=== PATIENT | female | born 1975 | race American Indian/Alaskan Native ===

== ENCOUNTER 2019-03-16 19:07 | Inpatient (IN) | payer BC ==
[2019-03-16] MEDS ORDERED: SODIUM CHLORIDE 0.9% 1000 ML 1,000 ML IV ONE (19:45)
--- NOTE | 2019-03-16 19:49 | Emergency Department Report ---
ED Shortness of Breath HPI - General Stated Complaint: DIFFICULTY BREATHING Time Seen by Provider: 03/16/19 19:25 Source: patient, EMS Mode of arrival: Stretcher Limitations: No Limitations - History of Present Illness Initial Comments: is a 43-year-old female that presents emergency room with complaints of shortness of breath and difficulty breathing. Patient states her symptoms started 2 days ago worsening. Patient states she has a lung condition. Patient is unable to speak in complete sentences. Patient denies chest pain. Patient denies dizziness. Patient denies syncope. Patient states her shortness of breath is worse with exertion and better with rest. Patient states she is on home O2. MD Complaint: shortness of breath -: Sudden Severity: severe Consistency: constant Improves With: oxygen, rest Worsens With: movement Known History Of: other - Related Data Home Medications Medication Instructions Recorded Confirmed Last Taken Carvedilol 25 mg PO BID 03/16/19 03/16/19 Unknown metFORMIN [Glucophage] 500 mg PO BID 03/16/19 03/16/19 Unknown Allergies Allergy/AdvReac Type Severity Reaction Status Date / Time No Known Allergies Allergy Unverified 03/16/19 20:40 ED Review of Systems ROS: Stated complaint: DIFFICULTY BREATHING Other details as noted in HPI Constitutional: denies: chills, fever Eyes: denies: eye pain, eye discharge, vision change ENT: denies: ear pain, throat pain Respiratory: cough, orthopnea, shortness of breath, SOB with exertion, SOB at rest. denies: wheezing Cardiovascular: dyspnea on exertion. 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, hypoxia - Surgical History Past Surgical History?: No - Family History Family history: no significant - Social History Smoking Status: Never Smoker Substance Use Type: None - Medications Home Medications: Home Medications Medication Instructions Recorded Confirmed Last Taken Type Carvedilol 25 mg PO BID 03/16/19 03/16/19 Unknown History metFORMIN [Glucophage] 500 mg PO BID 03/16/19 03/16/19 Unknown History ED Physical Exam - General Limitations: No Limitations General appearance: alert, in distress - Head Head exam: Present: atraumatic, normocephalic - Eye Eye exam: Present: normal appearance, PERRL Pupils: Present: normal accommodation - ENT ENT exam: Present: mucous membranes moist - Neck Neck exam: Present: normal inspection - Respiratory Respiratory exam: Present: normal lung sounds bilaterally, respiratory distress - Cardiovascular Cardiovascular Exam: Present: regular rate, normal rhythm. Absent: systolic murmur, diastolic murmur, rubs, gallop - GI/Abdominal GI/Abdominal exam: Present: soft, normal bowel sounds. Absent: distended, tenderness, guarding - Rectal Rectal exam: Present: deferred - Extremities Exam Extremities exam: Present: normal inspection, full ROM, normal capillary refill. Absent: tenderness, calf tenderness - Back Exam Back exam: Present: normal inspection - Neurological Exam Neurological exam: Present: alert, oriented X3 - Psychiatric Psychiatric exam: Present: normal affect, normal mood - Skin Skin exam: Present: warm, dry, intact, normal color. Absent: rash ED Course Vital Signs 03/16/19 03/16/19 03/16/19 15:32 16:03 16:50 Temperature Pulse Rate Respiratory Rate Blood Pressure 135/90 110/80 110/80 O2 Sat by Pulse 98 Oximetry 03/16/19 03/16/19 03/16/19 16:56 17:00 19:35 Temperature Pulse Rate Respiratory Rate Blood Pressure 110/80 110/80 191/130 O2 Sat by Pulse 96 97 82 L Oximetry 03/16/19 03/16/19 03/16/19 19:40 19:45 20:00 Temperature 98.1 F Pulse Rate 82 78 Respiratory 40 H 21 Rate Blood Pressure 191/130 191/130 O2 Sat by Pulse 100 99 Oximetry 03/16/19 03/16/19 03/16/19 20:30 20:46 21:00 Temperature Pulse Rate 71 71 62 Respiratory 16 22 Rate Blood Pressure 167/123 180/117 182/28 O2 Sat by Pulse 97 94 Oximetry 03/16/19 03/16/19 03/16/19 21:16 21:30 21:46 Temperature Pulse Rate 90 92 H 89 Respiratory 16 17 20 Rate Blood Pressure 182/128 145/100 179/112 O2 Sat by Pulse 99 98 99 Oximetry 03/16/19 03/16/19 03/16/19 22:00 22:22 22:30 Temperature Pulse Rate 85 104 H 98 H Respiratory 21 20 22 Rate Blood Pressure 179/112 199/135 159/106 O2 Sat by Pulse 98 98 98 Oximetry 03/16/19 03/16/19 03/16/19 22:45 23:00 23:15 Temperature Pulse Rate 97 H 98 H 97 H Respiratory 22 31 H 26 H Rate Blood Pressure 176/107 171/118 159/103 O2 Sat by Pulse 98 98 98 Oximetry 03/16/19 03/16/19 23:29 23:30 Temperature Pulse Rate 91 H 95 H Respiratory 25 H 29 H Rate Blood Pressure 159/103 142/99 O2 Sat by Pulse 98 97 Oximetry - Reevaluation(s) Reevaluation #1: Initial evaluation done. Patient will be placed on BiPAP. Patient is hypoxic and having increased work to breathe. 03/16/19 19:30 Reevaluation #2: Patient on BiPAP and patient's saturation has improved. 03/16/19 19:45 pt States she is feeling better on BiPAP. Patient's O2 saturation is better 03/16/19 19:51 Reevaluation #3: Patient states she's feeling better. Patient blood pressure elevated. Patient will be given hydralazine. 03/16/19 20:41 Reevaluation #4: Blood pressure better. Patient given Lasix IV for CHF changes. 03/16/19 21:26 Reevaluation #5: I discussed all results with patient. I discussed plan of care patient. She agrees plan of care and admission. Patient will be admitted to the hospital service. 03/16/19 22:45 - Consultations Consultation #1: Hospitalist consult for admission. Hospitalist to admit patient. Patient to be admitted to the ICU. 03/16/19 22:45 ED Medical Decision Making - Lab Data Result diagrams: 03/16/19 19:58 03/16/19 19:58 - EKG Data -: EKG Interpreted by Me EKG shows normal: sinus rhythm, axis, intervals, QRS complexes, ST-T waves Rate: normal - EKG Data Interpretation: [facility] - Radiology Data Radiology results: report reviewed, image reviewed CTA chest with contrast INDICATION : MAIN: hypoxia. sob; 100 ml of Omnipaque 350. TECHNIQUE: Axial imaging performed through the chest, with contrast bolus timing set to maximize opacification of the pulmonary arteries. 3-plane MIP reformatted images were obtained. All CT scans at this location are performed using CT dose reduction for ALARA by means of automated exposure control. 100 mL of intravenous contrast administered. COMPARISON: None FINDINGS: Bolus: Contrast bolus timing is adequate. PTE: No filling defect is present to suggest PTE. Mediastinum: Heart and great vessels appear normal. No pathologic mediastinal adenopathy. Lungs: There is mild diffuse interstitial disease with interstitial thickening s uggesting mild edema. No significant effusion identified. Upper abdomen: Limited imaging of the upper abdomen shows nothing acute. Bones: Degenerative changes in the spine with nothing acute. There is a healing right posterior 11th rib fracture. IMPRESSION: 1. Negative for PTE. 2. Mild interstitial edema with no significant effusion. CHEST 1 VIEW INDICATION: MAIN: sob Pt w/ joaquina x 1 d. Per EMS O2 sat 80% on 2L NC. Pt arrived on non- rebreather. Sats 77% on non-rebreather. No meds given by EMS. CURRENTLY ON BIPAP. COMPARISON: None FINDINGS: Support devices: None. Heart: Mild cardiomegaly. Lungs/Pleura: Patchy multifocal airspace disease and small bilateral effusions. Additional findings: None. IMPRESSION: 1. Pulmonary findings as above. - Medical Decision Making Patient is a 43-year-old female that presents emergency room with complaints of shortness of breath and difficulty in breathing. Patient found to be severely hypoxic. Patient was on a nonrebreather and satting 80%. Patient was then placed on a BiPAP. Patient responded well to therapy. Patient's work to breathe and oxygenation improved. Patient's given steroids. Patient given hydralazine for elevated blood pressure. Patient given Lasix for pulmonary rodrigo ma. Patient's chest x-ray shows pulmonary edema and possible effusion. Patient then had a CTA of the chest rule out PE. Patient's CT negative PE which shows pulmonary edema and no effusion. Patient given antibiotics due to clinical situation and elevated WBC. Patient admitted to the hospitalist service and into the ICU. - Differential Diagnosis breath. Hypoxia. Difficulties breathing. CHF. Critical Care Time: Yes Critical care time in (mins) excluding proc time.: 55 Critical care attestation.: If time is entered above; I have spent that time in minutes in the direct care of this critically ill patient, excluding procedure time. Critical Care Time: 55 minutes ED Disposition Clinical Impression: SOB (shortness of breath), Hypoxia, New onset of congestive heart failure, Pulmonary edema cardiac cause, Elevated brain natriuretic peptide (BNP) level Respiratory failure Qualifiers: Chronicity: acute Respiratory failure complication: hypoxia Qualified Code(s): J96.01 - Acute respiratory failure with hypoxia Elevated white blood cell count, unspecified Qualifiers: Leukocytosis type: unspecified Qualified Code(s): D72.829 - Elevated white blood cell count, unspecified Disposition: DC-09 OP ADMIT IP TO THIS HOSP Is pt being admited?: Yes Does the pt Need Aspirin: No Condition: Critical Time of Disposition: 22:46
[2019-03-16 20:13] LABS: Hematocrit 39.9 % (30.3-42.9); Hemoglobin 13.1 gm/dl (10.1-14.3); Mean Corpuscular HGB Conc 33 % (30-34); Mean Corpuscular Volume 85 fl (79-97); Platelet Count 259 K/mm3 (140-440); Red Blood Count 4.68 M/mm3 (3.65-5.03); Red Cell Distribution Width 14.8 % (13.2-15.2)
[2019-03-16 20:31] LABS: Creatine Kinase MB 3.3 ng/mL (0.0-4.0)
[2019-03-16 20:34] LABS: Alanine Aminotransferase 13 units/L (7-56); Albumin 3.8 g/dL (3.9-5); BUN/Creatinine Ratio 11; Blood Urea Nitrogen 10 mg/dL (7-17); Calcium 9.8 mg/dL (8.4-10.2); Hemolysis Index 2
[2019-03-16] MEDS ORDERED: hydrALAZINE 20 MG/1 ML INJ IV ONE (20:46)
[2019-03-16] MEDS ORDERED: CEFEPIME/NS 2 GM/100 ML 2 GM/100 ML BAG IV ONE (20:47)
[2019-03-16] MEDS ORDERED: methylPREDNISolone Sod Succinate 125 MG/2 ML INJ IV ONE (20:47)
[2019-03-16 21:09] LABS: Basophils % (Manual) 0 % (0.0-1.8); Total Cells Counted 100
[2019-03-16 21:10] LABS: Platelet Estimate Consistent w Auto; RBC Morphology Normal
[2019-03-16] MEDS ORDERED: FUROSEMIDE 40 MG/4 ML INJ IV ONE (21:25)
--- NOTE | 2019-03-16 21:44 | XRay Report ---
CHEST 1 VIEW INDICATION: MAIN: sob Pt w/ joaquina x 1 d. Per EMS O2 sat 80% on 2L NC. Pt arrived on non-rebreather. Sats 77% on non -rebreather. No meds given by EMS. CURRENTLY ON BIPAP. COMPARISON: None FINDINGS: Support devices: None. Heart: Mild cardiomegaly. Lungs/Pleura: Patchy multifocal airspace disease and small bilateral effusions. Additional findings: None. IMPRESSION: 1. Pulmonary findings as above. Signer Name: Porfirio Severino MD Signed: 03/16/2019 9:40 PM Workstation Name: [id number]
--- NOTE | 2019-03-16 22:34 | Cat Scan Report ---
CTA chest with contrast INDICATION : MAIN: hypoxia. sob; 100 ml of Omnipaque 350. TECHNIQUE: Axial imaging performed through the chest, with contrast bolus timing set to maximize opa cification of the pulmonary arteries. 3-plane MIP reformatted images were obtained. All CT scans at this location are performed using CT dose reduction for ALARA by means of automated exposure control. 100 mL of intravenous contrast administered. COMPARISON: None FINDINGS: Bolus: Contrast bolus timing is adequate. PTE: No filling defect is present to suggest PTE. Mediastinum: Heart and great vessels appear normal. No pathologic mediastinal adenopathy. Lungs: There is mild diffuse interstitial disease with interstitial thickening suggesting mild edema . No significant effusion identified. Upper abdomen: Limited imaging of the upper abdomen shows nothing acute. Bones: Degenerative changes in the spine with nothing acute. There is a healing right posterior 11th rib fracture. IMPRESSION: 1. Negative for PTE. 2. Mild interstitial edema with no significant effusion. Signer Name: Porfirio Severino MD Signed: 03/16/2019 10:30 PM Workstation Name: [id number]
--- NOTE | 2019-03-16 23:16 | History and Physical Report ---
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 Also complaining of a cough productive of yellow phlegm, she is on chronic steroids for anti-synthase syndrome - 30mg a day Review Of Systems: Constitutional: no weight loss, fever, chills Ears, eyes, nose, mouth and throat: no nasal congestion, no nasal discharge, no sinus pressure, blurry vision, diplopia Neck: No neck pain or rigidity. Cardiovascular: No palpitations, chest pain Respiratory: + shortness of breath, cough Gastrointestinal: No hematochezia, abdominal pain Genitourinary : no dysuria, frequency Musculoskeletal: no muscle ache , joint pain Integumentary: no rash, no pruritis Neurological: no parathesias, focal weakness Endocrine: no cold or heat intolerance, no polyuria or polydipsia Hematologic/Lymphatic: no easy bruising, no easy bleeding, no gland swelling Allergic/Immunologic: no urticaria, no angioedema. PAST MEDICAL HISTORY:anti-synthase syndrome, attention, diabetes, obesity PAST SURGICAL HISTORY: Tubal ligation FAMILY HISTORY:hypertension, diabetes SOCIAL HISTORY: Denies tobacco, drugs, alcohol Medications and Allergies Allergies Allergy/AdvReac Type Severity Reaction Status Date / Time No Known Allergies Allergy Unverified 03/16/19 20:40 Home Medications Medication Instructions Recorded Confirmed Last Taken Type Carvedilol 25 mg PO BID 03/16/19 03/16/19 Unknown History metFORMIN [Glucophage] 500 mg PO BID 03/16/19 03/16/19 Unknown History Exam - Physical Exam Narrative exam: General Apperance: The patient sitting in bed no acute distress HEENT: Normocephalic, atraumatic. Pupils equally round and reactive to light, extraocular movement intact, and no sclericterus or JVD or thyromegaly or nodule. Neck supple, no carotid bruit, mucous membranes moist, no exudate or erythema Heart: S1-S2, regular is rhythm Lungs:Crackles, decrease air entry bilaterally, breathing comfortable Abdomen: Positive bowel sounds, soft, nontender, nondistended, no organomegaly Extremities: No edema cyanosis clubbing Skin: no rash, nodule, warm and dry Neuro:CN 2 -12 intact, motor/sensory intact, speech is fluent - Constitutional Vitals: Temp Pulse Resp BP Pulse Ox 98.1 F 62 16 182/28 97 03/16/19 19:40 03/16/19 21:00 03/16/19 20:30 03/16/19 21:00 03/16/19 20:30 Results - Labs CBC & Chem 7: 03/16/19 19:58 03/16/19 19:58 Labs: Abnormal lab results 03/16/19 03/16/19 03/16/19 Range/Units 19:58 19:58 19:58 WBC 19.9 H (4.5-11.0) K/mm3 Seg Neuts % (Manual) 86.0 H (40.0-70.0) % Lymphocytes % (Manual) 10.0 L (13.4-35.0) % Seg Neutrophils # Man 17.1 H (1.8-7.7) K/mm3 Glucose 105 H (65-100) mg/dL Total Creatine Kinase 254 H (30-135) units/L NT-Pro-B Natriuret Pep (0-450) pg/mL Albumin 3.8 L (3.9-5) g/dL 03/16/19 Range/Units 20:23 WBC (4.5-11.0) K/mm3 Seg Neuts % (Manual) (40.0-70.0) % Lymphocytes % (Manual) (13.4-35.0) % Seg Neutrophils # Man (1.8-7.7) K/mm3 Glucose (65-100) mg/dL Total Creatine Kinase (30-135) units/L NT-Pro-B Natriuret Pep 1688 H (0-450) pg/mL Albumin (3.9-5) g/dL - Imaging and Cardiology EKG: image reviewed Chest x-ray: report reviewed CT scan - chest: report reviewed Assessment and Plan Assessment Acute respiratory failure Acute heart failure, new onset, probably diastolic Ant-synthase syndrome exacerbation Hypertension Diabetes Obesity Plan Admit to medicine Diuresed with Lasix, check cardiac enzymes echo, continue BIPAP Consult cardiologyvandana beta poncho given active lung issue Start SHERRIE inhibitor and aspirin Start high dose steroids, nebulizers Fingersticks initiate insulin sliding scale DVT prophylaxis
[2019-03-16] MEDS ORDERED: ACETAMINOPHEN 325 MG TAB PO PRN (23:23)
[2019-03-16] MEDS ORDERED: DEXTROSE 50% IN WATER (25GM) 50 ML SYRINGE IV PRN (23:23)
[2019-03-16] MEDS ORDERED: ONDANSETRON 4 MG/2 ML INJ IV PRN (23:23)
[2019-03-17 01:11] LABS: Bacteria,Urine 1+ /HPF (Negative); Bilirubin,Urine NEG (Negative); Blood,Urine NEG (Negative); Color,Urine Straw (Yellow); Protein,Urine <15 mg/dL mg/dL (Negative); Urobilinogen,Urine < 2.0 mg/dL (<2.0); WBC,Urine < 1.0 /HPF (0.0-6.0)
[2019-03-17] MEDS: IPRATROPIUM/ALBUTEROL SULFATE 3 ML AMPUL.NEB IH SCH ×4 (02:33→19:54)
[2019-03-17] MEDS: FUROSEMIDE 40 MG/4 ML INJ IV SCH ×2 (05:34→20:01)
[2019-03-17 05:47] LABS: Hemoglobin 13.3 gm/dl (10.1-14.3); Mean Corpuscular HGB Conc 32 % (30-34); Mean Corpuscular Volume 85 fl (79-97); Platelet Count 264 K/mm3 (140-440); Red Blood Count 4.81 M/mm3 (3.65-5.03); Red Cell Distribution Width 14.8 % (13.2-15.2)
[2019-03-17 06:10] LABS: BUN/Creatinine Ratio 11; Blood Urea Nitrogen 10 mg/dL (7-17); Calcium 9.7 mg/dL (8.4-10.2); Hemolysis Index 4
[2019-03-17 08:32] LABS: Basophils % (Manual) 0 % (0.0-1.8); Eosinophils % (Manual) 0 % (0.0-4.3); Total Cells Counted 100
[2019-03-17 08:33] LABS: Platelet Estimate Consistent w Auto; RBC Morphology Normal
[2019-03-17] MEDS: ENOXAPARIN 40 MG/0.4 ML INJ SUB-Q SCH (09:05)
[2019-03-17] MEDS: LISINOPRIL 5 MG TAB PO SCH (09:06)
[2019-03-17] MEDS: ASPIRIN 81 MG TAB CHEW PO SCH (09:06)
[2019-03-17] MEDS: INSULIN LISPRO 100 UNIT/ML SUB-Q SCH ×4 (10:43→21:58)
--- NOTE | 2019-03-17 11:14 | Progress Note ---
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 * CTA chest IMPRESSION: 1. Negative for PTE. 2. Mild interstitial edema with no significant effusion. * TTE Conclusions: mild concentric LVH, estimated EF 55-60%, left atrium dilated, grade 2 LV diastolic dysfunction, RVSF is normal, mild TR, RVSP is calculated at 63 mmHg Acute on chronic hypoxic respiratory failure on bipap 40%: consult Pulmonology ( followed by [place] [facility] doctors), try to wean bipap, continue O2 supplementation. Need ABGs Acute diastolic heart failure: treat with iv lasix, consult Cardiology ILD/Antisynthase exacerbation: treat with o2 supplementation, iv steroids and consult Pulm Pulmonary hypertension: consulted Pulmonology Morbid Obesity, BMI 48.4: Lifestyle modification stressed, weight watchers advised Type 2 DM: ssi, accucheck, ada Hypertension: continue antihypertensive med, low salt diet DVT ppx on lovenox History Interval history: Patient was seen and examined. Follow-up on current diagnosis of SOB. Overnight uneventful. Patient denies any chest pain, nausea/vomiting or severe headaches. Imaging, nursing note, chart, labs and old chart reviewed. Discussed with patient. Hospitalist Physical - Physical exam Narrative exam: GEN: WDWN, morbid obesity, 48.4, mild increase accessory muscle, on bipap, Awake, Alert, Orientated HEENT: NCAT, EOMI, PERRL, OP Clear NECK: supple, no adenopathy, no thyromegaly, no JVD CVS/HEART: RRR, normal S1S2, pulses present bilaterally CHEST/LUNGS: inspiratory crackles left > right, diminished bs bilateral, Symmetrical chest expansion, good air entry bilaterally GI/Abdomen: soft, NTND, good bowel sounds, no guarding or rebound /Bladder: no suprapubic tenderness, no CVA or paraspinal tenderness EXT/Skin: BLE pretibial edema, no obvious rash MSK: FROM x 4 Neuro: CN 2-12 grossly intact, no new focal deficits Psych: calm - Constitutional Vitals: Temp Pulse Resp BP Pulse Ox 97.4 F L 84 18 169/108 88 03/17/19 08:40 03/17/19 09:06 03/17/19 08:41 03/17/19 08:40 03/17/19 08:40 Results - Labs CBC & Chem 7: 03/17/19 05:14 03/17/19 05:14 Labs: Laboratory Last Values WBC 15.1 K/mm3 (4.5-11.0) H 03/17/19 05:14 RBC 4.81 M/mm3 (3.65-5.03) 03/17/19 05:14 Hgb 13.3 gm/dl (10.1-14.3) 03/17/19 05:14 Hct 41.0 % (30.3-42.9) 03/17/19 05:14 MCV 85 fl (79-97) 03/17/19 05:14 MCH 28 pg (28-32) 03/17/19 05:14 MCHC 32 % (30-34) 03/17/19 05:14 RDW 14.8 % (13.2-15.2) 03/17/19 05:14 Plt Count 264 K/mm3 (140-440) 03/17/19 05:14 Add Manual Diff Complete 03/17/19 05:14 Total Counted 100 03/17/19 05:14 Seg Neutrophils % [employer] 03/17/19 05:14 Seg Neuts % (Manual) 97.0 % (40.0-70.0) H 03/17/19 05:14 Band Neutrophils % 0 % 03/17/19 05:14 Lymphocytes % (Manual) 2.0 % (13.4-35.0) L 03/17/19 05:14 Reactive Lymphs % (Man) 0 % 03/17/19 05:14 Monocytes % (Manual) 1.0 % (0.0-7.3) 03/17/19 05:14 Eosinophils % (Manual) 0 % (0.0-4.3) 03/17/19 05:14 Basophils % (Manual) 0 % (0.0-1.8) 03/17/19 05:14 Metamyelocytes % 0 % 03/17/19 05:14 Myelocytes % 0 % 03/17/19 05:14 Promyelocytes % 0 % 03/17/19 05:14 Blast Cells % 0 % 03/17/19 05:14 Nucleated RBC % Not Reportable 03/17/19 05:14 Seg Neutrophils # Man 14.6 K/mm3 (1.8-7.7) H 03/17/19 05:14 Band Neutrophils # 0.0 K/mm3 03/17/19 05:14 Lymphocytes # (Manual) 0.3 K/mm3 (1.2-5.4) L 03/17/19 05:14 Abs React Lymphs (Man) 0.0 K/mm3 03/17/19 05:14 Monocytes # (Manual) 0.2 K/mm3 (0.0-0.8) 03/17/19 05:14 Eosinophils # (Manual) 0.0 K/mm3 (0.0-0.4) 03/17/19 05:14 Basophils # (Manual) 0.0 K/mm3 (0.0-0.1) 03/17/19 05:14 Metamyelocytes # 0.0 K/mm3 03/17/19 05:14 Myelocytes # 0.0 K/mm3 03/17/19 05:14 Promyelocytes # 0.0 K/mm3 03/17/19 05:14 Blast Cells # 0.0 K/mm3 03/17/19 05:14 WBC Morphology Not Reportable 03/17/19 05:14 Hypersegmented Neuts Not Reportable 03/17/19 05:14 Hyposegmented Neuts Not Reportable 03/17/19 05:14 Hypogranular Neuts Not Reportable 03/17/19 05:14 Smudge Cells Not Reportable 03/17/19 05:14 Toxic Granulation Not Reportable 03/17/19 05:14 Toxic Vacuolation Not Reportable 03/17/19 05:14 Dohle Bodies Not Reportable 03/17/19 05:14 Pelger-Huet Anomaly Not Reportable 03/17/19 05:14 Jr Rods Not Reportable 03/17/19 05:14 Platelet Estimate Consistent w auto 03/17/19 05:14 Clumped Platelets Not Reportable 03/17/19 05:14 Plt Clumps, EDTA Not Reportable 03/17/19 05:14 Large Platelets Not Reportable 03/17/19 05:14 Giant Platelets Not Reportable 03/17/19 05:14 Platelet Satelliting Not Reportable 03/17/19 05:14 Plt Morphology Comment Not Reportable 03/17/19 05:14 RBC Morphology Normal 03/17/19 05:14 Dimorphic RBCs Not Reportable 03/17/19 05:14 Polychromasia Not Reportable 03/17/19 05:14 Hypochromasia Not Reportable 03/17/19 05:14 Poikilocytosis Not Reportable 03/17/19 05:14 Anisocytosis Not Reportable 03/17/19 05:14 Microcytosis Not Reportable 03/17/19 05:14 Macrocytosis Not Reportable 03/17/19 05:14 Spherocytes Not Reportable 03/17/19 05:14 Pappenheimer Bodies Not Reportable 03/17/19 05:14 Sickle Cells Not Reportable 03/17/19 05:14 Target Cells Not Reportable 03/17/19 05:14 Tear Drop Cells Not Reportable 03/17/19 05:14 Ovalocytes Not Reportable 03/17/19 05:14 Helmet Cells Not Reportable 03/17/19 05:14 [place] Bodies Not Reportable 03/17/19 05:14 [place] Rings Not Reportable 03/17/19 05:14 [place] Cells Not Reportable 03/17/19 05:14 Bite Cells Not Reportable 03/17/19 05:14 Crenated Cell Not Reportable 03/17/19 05:14 Elliptocytes Not Reportable 03/17/19 05:14 Acanthocytes (Spur) Not Reportable 03/17/19 05:14 Rouleaux Not Reportable 03/17/19 05:14 Hemoglobin C Crystals Not Reportable 03/17/19 05:14 Schistocytes Not Reportable 03/17/19 05:14 Malaria parasites Not Reportable 03/17/19 05:14 Ramez Bodies Not Reportable 03/17/19 05:14 Hem Pathologist Commnt No 03/17/19 05:14 Sodium 140 mmol/L (137-145) 03/17/19 05:14 Potassium 4.5 mmol/L (3.6-5.0) 03/17/19 05:14 Chloride 101.3 mmol/L (98-107) 03/17/19 05:14 Carbon Dioxide 24 mmol/L (22-30) 03/17/19 05:14 Anion Gap 19 mmol/L 03/17/19 05:14 BUN 10 mg/dL (7-17) 03/17/19 05:14 Creatinine 0.9 mg/dL (0.7-1.2) 03/17/19 05:14 Estimated GFR > 60 ml/min 03/17/19 05:14 BUN/Creatinine Ratio 11 % 03/17/19 05:14 Glucose 164 mg/dL (65-100) H 03/17/19 05:14 POC Glucose 155 (70-105) H 03/17/19 08:54 Lactic Acid 1.20 mmol/L (0.7-2.0) 03/16/19 19:58 Calcium 9.7 mg/dL (8.4-10.2) 03/17/19 05:14 Total Bilirubin 0.60 mg/dL (0.1-1.2) 03/16/19 19:58 AST 19 units/L (5-40) 03/16/19 19:58 ALT 13 units/L (7-56) 03/16/19 19:58 Alkaline Phosphatase 40 units/L (35-129) 03/16/19 19:58 Total Creatine Kinase 254 units/L (30-135) H 03/16/19 19:58 CK-MB (CK-2) 3.3 ng/mL (0.0-4.0) 03/16/19 19:58 CK-MB (CK-2) Rel Index 1.2 (0-4) 03/16/19 19:58 Troponin T 0.023 ng/mL (0.00-0.029) 03/16/19 19:58 NT-Pro-B Natriuret Pep 1688 pg/mL (0-450) H 03/16/19 20:23 Total Protein 6.5 g/dL (6.3-8.2) 03/16/19 19:58 Albumin 3.8 g/dL (3.9-5) L 03/16/19 19:58 Albumin/Globulin Ratio 1.4 % 03/16/19 19:58 HCG, Qual Negative (Negative) 03/16/19 19:58 Urine Color Straw (Yellow) 03/17/19 00:49 Urine Turbidity Clear (Clear) 03/17/19 00:49 Urine pH 6.0 (5.0-7.0) 03/17/19 00:49 Ur Specific [place] 1.014 (1.003-1.030) 03/17/19 00:49 Urine Protein <15 mg/dl mg/dL (Negative) 03/17/19 00:49 Urine Glucose (UA) Neg mg/dL (Negative) 03/17/19 00:49 Urine Ketones Neg mg/dL (Negative) 03/17/19 00:49 Urine Blood Neg (Negative) 03/17/19 00:49 Urine Nitrite Neg (Negative) 03/17/19 00:49 Urine Bilirubin Neg (Negative) 03/17/19 00:49 Urine Urobilinogen < 2.0 mg/dL (<2.0) 03/17/19 00:49 Ur Leukocyte Esterase Neg (Negative) 03/17/19 00:49 Urine WBC (Auto) < 1.0 /HPF (0.0-6.0) 03/17/19 00:49 Urine RBC (Auto) 1.0 /HPF (0.0-6.0) 03/17/19 00:49 U Epithel Cells (Auto) 1.0 /HPF (0-13.0) 03/17/19 00:49 Urine Bacteria (Auto) 1+ /HPF (Negative) 03/17/19 00:49 Active Medications - Current Medications Current Medications: Generic Name Dose Route Start Last Admin Trade Name Freq PRN Reason Stop Dose Admin Acetaminophen 650 mg 03/16/19 23:23 Tylenol PO Q4H PRN Pain MILD(1-3)/Fever >100.5/MCDONALD Albuterol/Ipratropium 1 ampul 03/17/19 02:00 03/17/19 02:33 Duoneb *Not For Prn Use* IH 1 ampul Q6HRT [facility]U Administration Aspirin 81 mg 03/17/19 10:00 03/17/19 09:06 Baby Aspirin PO 81 mg QDAY [facility]U Administration Dextrose 0 ml 03/16/19 23:23 D50w (25gm) Syringe IV Q30MIN PRN Hypoglycemia Enoxaparin Sodium 40 mg 03/17/19 10:00 03/17/19 09:05 Enoxaparin SUB-Q 40 mg QDAY [facility]U Administration Furosemide 40 mg 03/17/19 06:00 03/17/19 05:34 Lasix IV 40 mg BID@0600,1800 [facility] Administration Insulin Human Lispro 0 unit 03/17/19 07:30 03/17/19 10:43 Humalog SUB-Q 3 unit ACHS MAU Administration Protocol Lisinopril 2.5 mg 03/17/19 10:00 03/17/19 09:06 Zestril PO 2.5 mg QDAY MAU Administration Ondansetron HCl 4 mg 03/16/19 23:23 Zofran IV Q8H PRN Nausea And Vomiting Sodium Chloride 10 ml 03/17/19 10:00 03/17/19 09:07 Sodium Chloride Flush Syringe 10 Ml IV 10 ml BID MAU Administration Sodium Chloride 10 ml 03/16/19 23:23 Sodium Chloride Flush Syringe 10 Ml IV PRN PRN LINE FLUSH
--- NOTE | 2019-03-17 12:53 | Consultation ---
History of Present Illness Consult date: 03/17/19 Requesting physician: JYOTHI RICO Consult reason: congestive heart failure History of present illness: The pt is a 43 year old woman with a past medical history of anti-synthetase syndrome, HTN, diabetes, obesity. She is previously unknown to our practice. She presented with c/o shortness of breath, PND and orthopnea 6 days. Also complaining of a cough productive of yellow phlegm, she is on chronic steroids for anti-synthetase syndrome - 30mg a day. She denies any chest pain, palpitations, n/v, diaphoresis, dizziness or syncope. She denies any known prior cardiac issues. She is currently requiring BiPAP. Past History Past Medical History: other (as per HPI) Medications and Allergies Allergies Allergy/AdvReac Type Severity Reaction Status Date / Time No Known Allergies Allergy Unverified 03/16/19 20:40 Home Medications Medication Instructions Recorded Confirmed Last Taken Type Carvedilol 25 mg PO BID 03/16/19 03/16/19 Unknown History metFORMIN [Glucophage] 500 mg PO BID 03/16/19 03/16/19 Unknown History Active Meds: Active Medications Acetaminophen (Tylenol) 650 mg PO Q4H PRN PRN Reason: Pain MILD(1-3)/Fever >100.5/[place]ON[facility]D Albuterol/Ipratropium (Duoneb *Not For Prn Use*) 1 ampul IH Q6HRT [facility] Last Admin: 03/17/19 02:33 Dose: 1 ampul Documented by: Aspirin (Baby Aspirin) 81 mg PO QDAY [facility] Last Admin: 03/17/19 09:06 Dose: 81 mg Documented by: Dextrose (D50w (25gm) Syringe) 0 ml IV Q30MIN PRN PRN Reason: Hypoglycemia Enoxaparin Sodium (Enoxaparin) 40 mg SUB-Q QDAY [facility] Last Admin: 03/17/19 09:05 Dose: 40 mg Documented by: Furosemide (Lasix) 40 mg IV BID@0600,1800 [facility] Last Admin: 03/17/19 05:34 Dose: 40 mg Documented by: Insulin Human Lispro (Humalog) 0 unit SUB-Q ACHS [facility]; Protocol Last Admin: 03/17/19 10:43 Dose: 3 unit Documented by: Lisinopril (Zestril) 2.5 mg PO QDAY [facility] Last Admin: 03/17/19 09:06 Dose: 2.5 mg Documented by: Ondansetron HCl (Zofran) 4 mg IV Q8H PRN PRN Reason: Nausea And Vomiting Sodium Chloride (Sodium Chloride Flush Syringe 10 Ml) 10 ml IV BID [facility] Last Admin: 03/17/19 09:07 Dose: 10 ml Documented by: Sodium Chloride (Sodium Chloride Flush Syringe 10 Ml) 10 ml IV PRN PRN PRN Reason: LINE FLUSH Review of Systems Constitutional: no weight loss, no weight gain Ears, nose, mouth and throat: no ear pain, no nose pain, no sinus pressure, no sinus pain Cardiovascular: orthopnea, shortness of breath, dyspnea on exertion, paroxysmal nocturnal dyspnea, high blood pressure, no chest pain, no palpitations, no rapid/irregular heart beat, no edema, no syncope, no lightheadedness, no leg edema Respiratory: cough with sputum, shortness of breath, dyspnea on exertion, no pain on inspiration Gastrointestinal: no abdominal pain, no nausea, no vomiting, no diarrhea, no constipation, no change in bowel habits Genitourinary Female: no pelvic pain, no flank pain, no dysuria, no urinary frequency, no urgency Musculoskeletal: no neck stiffness, no neck pain, no shooting arm pain, no arm numbness/tingling, no low back pain, no shooting leg pain Integumentary: no rash, no pruritis, no redness, no sores, no wounds Neurological: no head injury, no paralysis, no weakness, no parathesias, no numbness, no tingling, no seizures, no syncope Psychiatric: no anxiety Endocrine: no cold intolerance, no heat intolerance Hematologic/Lymphatic: no easy bruising, no easy bleeding Allergic/Immunologic: no urticaria Physical Examination Vital Signs BP 135/90 03/16/19 15:32 General appearance: other (on BiPAP) HEENT: Positive: PERRL, Normocephaly, Mucus Membranes Moist Neck: Positive: neck supple, trachea midline Cardiac: Positive: Reg Rate and Rhythm, S1/S2 Lungs: Positive: Decreased Breath Sounds, Oxygen Neuro: Positive: Grossly Intact Abdomen: Negative: Tender Skin: Negative: Rash Musculoskeletal: No Pain Extremities: Absent: edema Results 03/17/19 05:14 03/17/19 05:14 Cardiac Enzymes 03/16/19 03/16/19 Range/Units 19:58 19:58 AST 19 (5-40) units/L CK-MB (CK-2) 3.3 (0.0-4.0) ng/mL CBC 03/16/19 03/17/19 Range/Units 19:58 05:14 WBC 19.9 H 15.1 H (4.5-11.0) K/mm3 RBC 4.68 4.81 (3.65-5.03) M/mm3 Hgb 13.1 13.3 (10.1-14.3) gm/dl Hct 39.9 41.0 (30.3-42.9) % Plt Count 259 264 (140-440) K/mm3 Comprehensive Metabolic Panel 03/16/19 03/17/19 Range/Units 19:58 05:14 Sodium 141 140 (137-145) mmol/L Potassium 3.9 4.5 (3.6-5.0) mmol/L Chloride 105.4 101.3 (98-107) mmol/L Carbon Dioxide 23 24 (22-30) mmol/L BUN 10 10 (7-17) mg/dL Creatinine 0.9 0.9 (0.7-1.2) mg/dL Glucose 105 H 164 H (65-100) mg/dL Calcium 9.8 9.7 (8.4-10.2) mg/dL AST 19 (5-40) units/L ALT 13 (7-56) units/L Alkaline Phosphatase 40 (35-129) units/L Total Protein 6.5 (6.3-8.2) g/dL Albumin 3.8 L (3.9-5) g/dL - Imaging and Cardiology Echo: report reviewed EKG: report reviewed, image reviewed EKG interpretations - Telemetry EKG Rhythm: Sinus Rhythm - EKG Sinus rhythms and dysrhythmias: sinus rhythm Assessment and Plan Echo reviewed - EF 55-60%, mild LVH, grade 2 diastolic dysfunction, mild TR, pulm HTN with RVSP 63mmHg. Agree with IV diuretics. Optimize BPs. Pulmonary has been consulted. The patient has been seen in conjunction with Dr. Guzmán who agrees with the assessment and plan of care. - Patient Problems (1) Acute heart failure with preserved ejection fraction Current Visit: Yes Status: Acute (2) Acute respiratory failure Current Visit: Yes Status: Acute (3) HTN (hypertension) Current Visit: Yes Status: Chronic (4) Diabetes Current Visit: Yes Status: Chronic (5) Obesity Current Visit: Yes Status: Chronic (6) Antisynthetase syndrome Current Visit: Yes Status: Chronic (7) Pulmonary hypertension Current Visit: Yes Status: Chronic
--- NOTE | 2019-03-17 14:31 | Consultation ---
History of Present Illness Consult date: 03/17/19 Requesting physician: JYOTHI RICO Reason for consult: other (acute respiratory failure and ILD) History of present illness: 43 y/o female with a diagnosis of Anti-synthetase syndrome, followed by [facility] and [facility] admitted with acute respiratory failure. Per patient lives about 2 hours from here and was staying with a near by family member as she had a PFT due at [facility] soon. Per patient she has been short of breath for about a week but it has progressively gotten worse. The patient states that she is currently on Pred 30 daily. She was on cellcept several months ago but this was discontinued once she started an infusion that she cannot tell me the name of. She is extremely winded just with talking while lying in bed. currently on bipap. Her last sat on 5 liters [place] was 94[address] CT scan shows ILD with some pulmonary vascular congestion. Past History Past Medical History: other (as per HPI) Medications and Allergies Allergies Allergy/AdvReac Type Severity Reaction Status Date / Time No Known Allergies Allergy Unverified 03/16/19 20:40 Home Medications Medication Instructions Recorded Confirmed Last Taken Type Carvedilol 25 mg PO BID 03/16/19 03/16/19 Unknown History metFORMIN [Glucophage] 500 mg PO BID 03/16/19 03/16/19 Unknown History Active Meds: Active Medications Acetaminophen (Tylenol) 650 mg PO Q4H PRN PRN Reason: Pain MILD(1-3)/Fever >100.5/[place] Albuterol/Ipratropium (Duoneb *Not For Prn Use*) 1 ampul IH Q6HRT [facility] Last Admin: 03/17/19 13:48 Dose: 1 ampul Documented by: Aspirin (Baby Aspirin) 81 mg PO QDAY [facility] Last Admin: 03/17/19 09:06 Dose: 81 mg Documented by: Dextrose (D50w (25gm) Syringe) 0 ml IV Q30MIN PRN PRN Reason: Hypoglycemia Enoxaparin Sodium (Enoxaparin) 40 mg SUB-Q QDAY [facility] Last Admin: 03/17/19 09:05 Dose: 40 mg Documented by: Furosemide (Lasix) 40 mg IV BID@0600,1800 [facility] Last Admin: 03/17/19 05:34 Dose: 40 mg Documented by: Insulin Human Lispro (Humalog) 0 unit SUB-Q ACHS [facility]; Protocol Last Admin: 03/17/19 10:43 Dose: 3 unit Documented by: Lisinopril (Zestril) 2.5 mg PO QDAY [facility] Last Admin: 03/17/19 09:06 Dose: 2.5 mg Documented by: Metoprolol Tartrate (Metoprolol) 25 mg PO BID [facility] Ondansetron HCl (Zofran) 4 mg IV Q8H PRN PRN Reason: Nausea And Vomiting Sodium Chloride (Sodium Chloride Flush Syringe 10 Ml) 10 ml IV BID [facility] Last Admin: 03/17/19 09:07 Dose: 10 ml Documented by: Sodium Chloride (Sodium Chloride Flush Syringe 10 Ml) 10 ml IV PRN PRN PRN Reason: LINE FLUSH Review of Systems All systems: negative Physical Examination Vital signs: Vital Signs BP 135/90 03/16/19 15:32 General appearance: appears uncomfortable, other (mild distress) Eyes: non-icteric ENT: other (full face mask bipap therapy on) Neck: supple Effort: mildly labored Ascultation: Bilateral: rales, rhonchi Percussion: Bilateral: not dull Tactile fremitus: Bilateral: normal Results - Laboratory Findings CBC and BMP: 03/17/19 05:14 03/17/19 05:14 Abnormal lab findings: Abnormal Labs 03/16/19 03/16/19 03/16/19 19:58 19:58 19:58 WBC 19.9 H Seg Neuts % (Manual) 86.0 H Lymphocytes % (Manual) 10.0 L Seg Neutrophils # Man 17.1 H Lymphocytes # (Manual) Glucose 105 H POC Glucose Total Creatine Kinase 254 H NT-Pro-B Natriuret Pep Albumin 3.8 L 03/16/19 03/17/19 03/17/19 20:23 05:14 05:14 WBC 15.1 H Seg Neuts % (Manual) 97.0 H Lymphocytes % (Manual) 2.0 L Seg Neutrophils # Man 14.6 H Lymphocytes # (Manual) 0.3 L Glucose 164 H POC Glucose Total Creatine Kinase NT-Pro-B Natriuret Pep 1688 H Albumin 03/17/19 03/17/19 08:54 12:34 WBC Seg Neuts % (Manual) Lymphocytes % (Manual) Seg Neutrophils # Man Lymphocytes # (Manual) Glucose POC Glucose 155 H 117 H Total Creatine Kinase NT-Pro-B Natriuret Pep Albumin - Diagnostic Findings CT scan - chest: image reviewed (as per hpi) Assessment and Plan 43 y/o female with anti-synthetase syndrome admitted with worsening shortness of breath and acute respiratory failure. 1. Pulm-multifactorial causes of respiratory failure. Patient has been on chronic steroids. Not sure if she has been on PCP prophylaxis. Would obtain sputum sample if possible and send for PCP/PJP as well as regular respiratory culture. She is at risk for oppurtunistic infection. Patient also found to have grade 2 diastolic dysfunction seen on echo with elevated bp and BNP. Agree with diuretic therapy and PPV to help with this. Will need better BP control 2. Will increase her steroids to IV solumedrol 60q6 for right now 3. Spoke with [facility] and honestly would call [place] to see if they want to take patient on their service since her pulm and rheum docs are both there. She also is due for an infusion that she cannot tell me the name of. That infusion may help with this current bout of respiratory failure. If they wish to not take, then will treat as best as possible here. Maybe we can get there records and review them.
[2019-03-17] MEDS: methylPREDNISolone Sod Succinate 125 MG/2 ML INJ IV SCH ×2 (18:00→20:00)
[2019-03-17] MEDS: METOPROLOL TARTRATE 25 MG TAB PO SCH ×2 (19:57→21:57)
[2019-03-18] MEDS: methylPREDNISolone Sod Succinate 125 MG/2 ML INJ IV SCH ×4 (00:22→20:46)
[2019-03-18] MEDS: IPRATROPIUM/ALBUTEROL SULFATE 3 ML AMPUL.NEB IH SCH ×4 (02:58→22:03)
[2019-03-18] MEDS: FUROSEMIDE 40 MG/4 ML INJ IV SCH (05:07)
[2019-03-18 05:56] LABS: BUN/Creatinine Ratio 18; Blood Urea Nitrogen 16 mg/dL (7-17); Calcium 9.5 mg/dL (8.4-10.2); Hemolysis Index 4
[2019-03-18 06:02] LABS: Hematocrit 41.4 % (30.3-42.9); Hemoglobin 13.5 gm/dl (10.1-14.3); Mean Corpuscular HGB Conc 33 % (30-34); Mean Corpuscular Volume 85 fl (79-97); Platelet Count 285 K/mm3 (140-440); Red Blood Count 4.86 M/mm3 (3.65-5.03); Red Cell Distribution Width 14.8 % (13.2-15.2)
[2019-03-18 10:29] LABS: ABG Base Excess 3.2 mmol/L (-2.0-3.0); ABG HCO3 27.4 mmol/L (20.0-26.0); ABG Methemoglobin 0.6 % (0.0-1.5); ABG Oxygen Saturation 94.7 % (95.0-99.0); ABG PCO2 40.5 mm Hg; ABG PH 7.448 pH Units (7.350-7.450)
[2019-03-18] MEDS: LISINOPRIL 5 MG TAB PO SCH (11:12)
[2019-03-18] MEDS: ENOXAPARIN 40 MG/0.4 ML INJ SUB-Q SCH (11:13)
[2019-03-18] MEDS: ASPIRIN 81 MG TAB CHEW PO SCH (11:13)
[2019-03-18] MEDS: METOPROLOL TARTRATE 25 MG TAB PO SCH ×2 (11:13→21:50)
--- NOTE | 2019-03-18 13:01 | Progress Note ---
Assessment and Plan A/P decompensated resp status Underlying interstitial disease +/- vol overload Not sure how far from baseline she is Will continue higher dose steroid and decrease Lasix Echo noted CT reviewed Tried to contact [place] [facility] [phone] but was unsucessful x 2 Will keep on IV steroid for now reassess in am Subjective Date of service: 03/18/19 Interval history: 03/18/19 Pulm: had bipap, diuresis incr steroid some better prob not at baseline on 02 etc occ cough resting comfortable at this point Objective - Exam Narrative Exam: GEN: WDWN, morbid obesity, 48.4, mild increase accessory muscle, on bipap, Awake, Alert, Orientated HEENT: NCAT, EOMI, PERRL, OP Clear NECK: supple, no adenopathy, no thyromegaly, no JVD CVS/HEART: RRR, normal S1S2, pulses present bilaterally CHEST/LUNGS: inspiratory crackles left > right, diminished bs bilateral, Symmetrical chest expansion, good air entry bilaterally GI/Abdomen: soft, NTND, good bowel sounds, no guarding or rebound /Bladder: no suprapubic tenderness, no CVA or paraspinal tenderness EXT/Skin: BLE pretibial edema, no obvious rash MSK: FROM x 4 Neuro: CN 2-12 grossly intact, no new focal deficits Psych: calm Vital Signs - 12hr 03/18/19 03/18/19 03/18/19 02:59 03:52 07:50 Temperature 97.9 F Pulse Rate 66 Pulse Rate [ 71 66 Bilateral Throughout] Respiratory 16 Rate Respiratory 18 16 Rate [Bilateral Throughout] Blood Pressure 146/95 O2 Sat by Pulse 94 Oximetry 03/18/19 03/18/19 08:38 10:48 Temperature 97.6 F Pulse Rate 70 Pulse Rate [ Bilateral Throughout] Respiratory 19 Rate Respiratory Rate [Bilateral Throughout] Blood Pressure 211/137 O2 Sat by Pulse 100 93 Oximetry Constitutional: no acute distress, alert Eyes: non-icteric ENT: oropharynx moist Neck: supple Effort: mildly labored Ascultation: Bilateral: wheezes (min), rales (mod bases ), rhonchi Percussion: Bilateral: not dull Tactile fremitus: Bilateral: normal Cardiovascular: regular rate and rhythm Gastrointestinal: normoactive bowel sounds Extremities: no cyanosis, no edema Neurologic: normal mental status CBC and BMP: 03/18/19 04:36 03/18/19 04:36 ABG, PT/INR, D-dimer: ABG ABG pH 7.448 pH Units (7.350-7.450) 03/18/19 Unknown ABG pCO2 40.5 mm Hg 03/18/19 Unknown ABG pO2 69.0 mm Hg (80.0-90.0) L 03/18/19 Unknown ABG O2 Saturation 94.7 % (95.0-99.0) L 03/18/19 Unknown Abnormal lab findings: Abnormal Labs 03/16/19 03/16/19 03/16/19 19:58 19:58 19:58 WBC 19.9 H Seg Neuts % (Manual) 86.0 H Lymphocytes % (Manual) 10.0 L Seg Neutrophils # Man 17.1 H Lymphocytes # (Manual) ABG pO2 ABG HCO3 ABG O2 Saturation ABG Base Excess Oxyhemoglobin Glucose 105 H POC Glucose Total Creatine Kinase 254 H NT-Pro-B Natriuret Pep Albumin 3.8 L 03/16/19 03/17/19 03/17/19 20:23 05:14 05:14 WBC 15.1 H Seg Neuts % (Manual) 97.0 H Lymphocytes % (Manual) 2.0 L Seg Neutrophils # Man 14.6 H Lymphocytes # (Manual) 0.3 L ABG pO2 ABG HCO3 ABG O2 Saturation ABG Base Excess Oxyhemoglobin Glucose 164 H POC Glucose Total Creatine Kinase NT-Pro-B Natriuret Pep 1688 H Albumin 03/17/19 03/17/19 03/17/19 08:54 12:34 16:47 WBC Seg Neuts % (Manual) Lymphocytes % (Manual) Seg Neutrophils # Man Lymphocytes # (Manual) ABG pO2 ABG HCO3 ABG O2 Saturation ABG Base Excess Oxyhemoglobin Glucose POC Glucose 155 H 117 H 121 H Total Creatine Kinase NT-Pro-B Natriuret Pep Albumin 03/17/19 03/18/19 03/18/19 21:37 04:36 04:36 WBC 20.0 H Seg Neuts % (Manual) Lymphocytes % (Manual) Seg Neutrophils # Man Lymphocytes # (Manual) ABG pO2 ABG HCO3 ABG O2 Saturation ABG Base Excess Oxyhemoglobin Glucose 165 H POC Glucose 113 H Total Creatine Kinase NT-Pro-B Natriuret Pep Albumin 03/18/19 Unknown WBC Seg Neuts % (Manual) Lymphocytes % (Manual) Seg Neutrophils # Man Lymphocytes # (Manual) ABG pO2 69.0 L ABG HCO3 27.4 H ABG O2 Saturation 94.7 L ABG Base Excess 3.2 H Oxyhemoglobin 92.8 L Glucose POC Glucose Total Creatine Kinase NT-Pro-B Natriuret Pep Albumin Chest x-ray: report reviewed, image reviewed CT scan - chest: report reviewed, image reviewed
[2019-03-18] MEDS ORDERED: hydrALAZINE 20 MG/1 ML INJ IV PRN (13:34)
--- NOTE | 2019-03-18 13:38 | Progress Note ---
Assessment and Plan Echo reviewed - EF 55-60%, mild LVH, grade 2 diastolic dysfunction, mild TR, pulm HTN with RVSP 63mmHg. Cont present cardiac management. Pulmonary is considering tx to [place]. The patient has been seen in conjunction with Dr. Guzmán who agrees with the assessment and plan of care. 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 in SR on telemetry. Objective Last Vital Signs Temp 97.6 F 03/18/19 10:48 Pulse 70 03/18/19 10:48 Resp 19 03/18/19 10:48 BP 211/137 03/18/19 10:48 Pulse Ox 93 03/18/19 10:48 - Physical Examination General: No Apparent Distress HEENT: Positive: PERRL, Normocephaly, Mucus Membranes Moist Neck: Positive: neck supple, trachea midline Cardiac: Positive: Reg Rate and Rhythm, S1/S2 Lungs: Positive: Decreased Breath Sounds, Oxygen Neuro: Positive: Grossly Intact Abdomen: Negative: Tender Skin: Negative: Rash Musculoskeletal: No Pain Extremities: Absent: edema - Labs and Meds CBC 03/18/19 Range/Units 04:36 WBC 20.0 H (4.5-11.0) K/mm3 RBC 4.86 (3.65-5.03) M/mm3 Hgb 13.5 (10.1-14.3) gm/dl Hct 41.4 (30.3-42.9) % Plt Count 285 (140-440) K/mm3 Comprehensive Metabolic Panel 03/18/19 Range/Units 04:36 Sodium 143 (137-145) mmol/L Potassium 4.7 (3.6-5.0) mmol/L Chloride 101.6 (98-107) mmol/L Carbon Dioxide 26 (22-30) mmol/L BUN 16 (7-17) mg/dL Creatinine 0.9 (0.7-1.2) mg/dL Glucose 165 H (65-100) mg/dL Calcium 9.5 (8.4-10.2) mg/dL - Imaging and Cardiology EKG: report reviewed, image reviewed Echo: report reviewed (EF 55-60%, mild LVH, grade 2 diastolic dysfunction, mild TR, pulm HTN with RVSP 63mmHg. ) - Telemetry EKG Rhythm: Sinus Rhythm - EKG Sinus rhythms and dysrhythmias: sinus rhythm
--- NOTE | 2019-03-18 13:39 | Progress Note ---
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 * CTA chest IMPRESSION: 1. Negative for PTE. 2. Mild interstitial edema with no significant effusion. * TTE Conclusions: mild concentric LVH, estimated EF 55-60%, left atrium dilated, grade 2 LV diastolic dysfunction, RVSF is normal, mild TR, RVSP is calculated at 63 mmHg Acute on chronic hypoxic respiratory failure on bipap 40%: consult Pulmonology ( followed by [facility]), try to wean bipap, continue O2 supplementation. Need ABGs Acute diastolic heart failure: treat with iv lasix, consult Cardiology ILD/Antisynthase exacerbation: treat with o2 supplementation, iv steroids and consult Pulm Pulmonary hypertension: consulted Pulmonology Morbid Obesity, BMI 48.4: Lifestyle modification stressed, weight watchers advised Type 2 DM: ssi, accucheck, ada Hypertension: continue antihypertensive med, low salt diet DVT ppx on lovenox 03/17/19 15:28: I spoke with Dr. Beauchamp, it appears patient was traveling thru this area to go to [facility] for IV infusion treatment that is not done Here. She lives 2 hours away and stopped here because closest hospital. I called [facility] [phone] and spoke with Selene Diallo. Addendum entered and electronically signed by JYOTHI RICO MD 03/17/19 16:16: Hospitalist Dr. Lopez Cruz called me back, unable to accept this patient because she is on bipap, so she will need ICU doctor to accept but [facility] is on ICU diversion. 03/18/19: BIPAP weaned off yesterday, now on 4L O2, so I called [facility] transfer center back at [phone] and spoke with Kaye, she will call me back. History Interval history: Patient was seen and examined. Follow-up on current diagnosis of SOB. Overnight uneventful. Patient denies any chest pain, nausea/vomiting or severe headaches. Imaging, nursing note, chart, labs and old chart reviewed. Discussed with patient. Hospitalist Physical - Physical exam Narrative exam: GEN: WDWN, morbid obesity, 48.4, mild increase accessory muscle, on bipap, Awake, Alert, Orientated HEENT: NCAT, EOMI, PERRL, OP Clear NECK: supple, no adenopathy, no thyromegaly, no JVD CVS/HEART: RRR, normal S1S2, pulses present bilaterally CHEST/LUNGS: inspiratory crackles left > right, diminished bs bilateral, Symmetrical chest expansion, good air entry bilaterally GI/Abdomen: soft, NTND, good bowel sounds, no guarding or rebound /Bladder: no suprapubic tenderness, no CVA or paraspinal tenderness EXT/Skin: BLE pretibial edema, no obvious rash MSK: FROM x 4 Neuro: CN 2-12 grossly intact, no new focal deficits Psych: calm - Constitutional Vitals: Temp Pulse Resp BP Pulse Ox 97.6 F 70 19 211/137 93 03/18/19 10:48 03/18/19 10:48 03/18/19 10:48 03/18/19 10:48 03/18/19 10:48 General appearance: Present: other (on BiPAP) Results - Labs CBC & Chem 7: 03/18/19 04:36 03/18/19 04:36 Labs: Laboratory Last Values WBC 20.0 K/mm3 (4.5-11.0) H 03/18/19 04:36 RBC 4.86 M/mm3 (3.65-5.03) 03/18/19 04:36 Hgb 13.5 gm/dl (10.1-14.3) 03/18/19 04:36 Hct 41.4 % (30.3-42.9) 03/18/19 04:36 MCV 85 fl (79-97) 03/18/19 04:36 MCH 28 pg (28-32) 03/18/19 04:36 MCHC 33 % (30-34) 03/18/19 04:36 RDW 14.8 % (13.2-15.2) 03/18/19 04:36 Plt Count 285 K/mm3 (140-440) 03/18/19 04:36 Add Manual Diff Complete 03/17/19 05:14 Total Counted 100 03/17/19 05:14 Seg Neutrophils % [place] [employer] 03/17/19 05:14 Seg Neuts % (Manual) 97.0 % (40.0-70.0) H 03/17/19 05:14 Band Neutrophils % 0 % 03/17/19 05:14 Lymphocytes % (Manual) 2.0 % (13.4-35.0) L 03/17/19 05:14 Reactive Lymphs % (Man) 0 % 03/17/19 05:14 Monocytes % (Manual) 1.0 % (0.0-7.3) 03/17/19 05:14 Eosinophils % (Manual) 0 % (0.0-4.3) 03/17/19 05:14 Basophils % (Manual) 0 % (0.0-1.8) 03/17/19 05:14 Metamyelocytes % 0 % 03/17/19 05:14 Myelocytes % 0 % 03/17/19 05:14 Promyelocytes % 0 % 03/17/19 05:14 Blast Cells % 0 % 03/17/19 05:14 Nucleated RBC % Not Reportable 03/17/19 05:14 Seg Neutrophils # Man 14.6 K/mm3 (1.8-7.7) H 03/17/19 05:14 Band Neutrophils # 0.0 K/mm3 03/17/19 05:14 Lymphocytes # (Manual) 0.3 K/mm3 (1.2-5.4) L 03/17/19 05:14 Abs React Lymphs (Man) 0.0 K/mm3 03/17/19 05:14 Monocytes # (Manual) 0.2 K/mm3 (0.0-0.8) 03/17/19 05:14 Eosinophils # (Manual) 0.0 K/mm3 (0.0-0.4) 03/17/19 05:14 Basophils # (Manual) 0.0 K/mm3 (0.0-0.1) 03/17/19 05:14 Metamyelocytes # 0.0 K/mm3 03/17/19 05:14 Myelocytes # 0.0 K/mm3 03/17/19 05:14 Promyelocytes # 0.0 K/mm3 03/17/19 05:14 Blast Cells # 0.0 K/mm3 03/17/19 05:14 WBC Morphology Not Reportable 03/17/19 05:14 Hypersegmented Neuts Not Reportable 03/17/19 05:14 Hyposegmented Neuts Not Reportable 03/17/19 05:14 Hypogranular Neuts Not Reportable 03/17/19 05:14 Smudge Cells Not Reportable 03/17/19 05:14 Toxic Granulation Not Reportable 03/17/19 05:14 Toxic Vacuolation Not Reportable 03/17/19 05:14 Dohle Bodies Not Reportable 03/17/19 05:14 Pelger-Huet Anomaly Not Reportable 03/17/19 05:14 Jr Rods Not Reportable 03/17/19 05:14 Platelet Estimate Consistent w auto 03/17/19 05:14 Clumped Platelets Not Reportable 03/17/19 05:14 Plt Clumps, EDTA Not Reportable 03/17/19 05:14 Large Platelets Not Reportable 03/17/19 05:14 Giant Platelets Not Reportable 03/17/19 05:14 Platelet Satelliting Not Reportable 03/17/19 05:14 Plt Morphology Comment Not Reportable 03/17/19 05:14 RBC Morphology Normal 03/17/19 05:14 Dimorphic RBCs Not Reportable 03/17/19 05:14 Polychromasia Not Reportable 03/17/19 05:14 Hypochromasia Not Reportable 03/17/19 05:14 Poikilocytosis Not Reportable 03/17/19 05:14 Anisocytosis Not Reportable 03/17/19 05:14 Microcytosis Not Reportable 03/17/19 05:14 Macrocytosis Not Reportable 03/17/19 05:14 Spherocytes Not Reportable 03/17/19 05:14 Pappenheimer Bodies Not Reportable 03/17/19 05:14 Sickle Cells Not Reportable 03/17/19 05:14 Target Cells Not Reportable 03/17/19 05:14 Tear Drop Cells Not Reportable 03/17/19 05:14 Ovalocytes Not Reportable 03/17/19 05:14 Helmet Cells Not Reportable 03/17/19 05:14 [place] Bodies Not Reportable 03/17/19 05:14 [place] Rings Not Reportable 03/17/19 05:14 [place] Cells Not Reportable 03/17/19 05:14 Bite Cells Not Reportable 03/17/19 05:14 Crenated Cell Not Reportable 03/17/19 05:14 Elliptocytes Not Reportable 03/17/19 05:14 Acanthocytes (Spur) Not Reportable 03/17/19 05:14 Rouleaux Not Reportable 03/17/19 05:14 Hemoglobin C Crystals Not Reportable 03/17/19 05:14 Schistocytes Not Reportable 03/17/19 05:14 Malaria parasites Not Reportable 03/17/19 05:14 Ramez Bodies Not Reportable 03/17/19 05:14 Hem Pathologist Commnt No 03/17/19 05:14 ABG pH 7.448 pH Units (7.350-7.450) 03/18/19 Unknown ABG pCO2 40.5 mm Hg 03/18/19 Unknown ABG pO2 69.0 mm Hg (80.0-90.0) L 03/18/19 Unknown ABG HCO3 27.4 mmol/L (20.0-26.0) H 03/18/19 Unknown ABG O2 Saturation 94.7 % (95.0-99.0) L 03/18/19 Unknown ABG O2 Content 18.8 (0.0-44) 03/18/19 Unknown ABG Base Excess 3.2 mmol/L (-2.0-3.0) H 03/18/19 Unknown ABG Hemoglobin 14.4 gm/dl (12.0-16.0) 03/18/19 Unknown ABG Carboxyhemoglobin 1.4 % (0.0-5.0) 03/18/19 Unknown ABG Methemoglobin 0.6 % (0.0-1.5) 03/18/19 Unknown Oxyhemoglobin 92.8 % (95.0-99.0) L 03/18/19 Unknown FiO2 32 % 03/18/19 Unknown Sodium 143 mmol/L (137-145) 03/18/19 04:36 Potassium 4.7 mmol/L (3.6-5.0) 03/18/19 04:36 Chloride 101.6 mmol/L (98-107) 03/18/19 04:36 Carbon Dioxide 26 mmol/L (22-30) 03/18/19 04:36 Anion Gap 20 mmol/L 03/18/19 04:36 BUN 16 mg/dL (7-17) 03/18/19 04:36 Creatinine 0.9 mg/dL (0.7-1.2) 03/18/19 04:36 Estimated GFR > 60 ml/min 03/18/19 04:36 BUN/Creatinine Ratio 18 % 03/18/19 04:36 Glucose 165 mg/dL (65-100) H 03/18/19 04:36 POC Glucose 113 (70-105) H 03/17/19 21:37 Lactic Acid 1.20 mmol/L (0.7-2.0) 03/16/19 19:58 Calcium 9.5 mg/dL (8.4-10.2) 03/18/19 04:36 Total Bilirubin 0.60 mg/dL (0.1-1.2) 03/16/19 19:58 AST 19 units/L (5-40) 03/16/19 19:58 ALT 13 units/L (7-56) 03/16/19 19:58 Alkaline Phosphatase 40 units/L (35-129) 03/16/19 19:58 Total Creatine Kinase 254 units/L (30-135) H 03/16/19 19:58 CK-MB (CK-2) 3.3 ng/mL (0.0-4.0) 03/16/19 19:58 CK-MB (CK-2) Rel Index 1.2 (0-4) 03/16/19 19:58 Troponin T 0.023 ng/mL (0.00-0.029) 03/16/19 19:58 NT-Pro-B Natriuret Pep 1688 pg/mL (0-450) H 03/16/19 20:23 Total Protein 6.5 g/dL (6.3-8.2) 03/16/19 19:58 Albumin 3.8 g/dL (3.9-5) L 03/16/19 19:58 Albumin/Globulin Ratio 1.4 % 03/16/19 19:58 HCG, Qual Negative (Negative) 03/16/19 19:58 Urine Color Straw (Yellow) 03/17/19 00:49 Urine Turbidity Clear (Clear) 03/17/19 00:49 Urine pH 6.0 (5.0-7.0) 03/17/19 00:49 Ur Specific [place] 1.014 (1.003-1.030) 03/17/19 00:49 Urine Protein <15 mg/dl mg/dL (Negative) 03/17/19 00:49 Urine Glucose (UA) Neg mg/dL (Negative) 03/17/19 00:49 Urine Ketones Neg mg/dL (Negative) 03/17/19 00:49 Urine Blood Neg (Negative) 03/17/19 00:49 Urine Nitrite Neg (Negative) 03/17/19 00:49 Urine Bilirubin Neg (Negative) 03/17/19 00:49 Urine Urobilinogen < 2.0 mg/dL (<2.0) 03/17/19 00:49 Ur Leukocyte Esterase Neg (Negative) 03/17/19 00:49 Urine WBC (Auto) < 1.0 /HPF (0.0-6.0) 03/17/19 00:49 Urine RBC (Auto) 1.0 /HPF (0.0-6.0) 03/17/19 00:49 U Epithel Cells (Auto) 1.0 /HPF (0-13.0) 03/17/19 00:49 Urine Bacteria (Auto) 1+ /HPF (Negative) 03/17/19 00:49 Active Medications - Current Medications Current Medications: Generic Name Dose Route Start Last Admin Trade Name Freq PRN Reason Stop Dose Admin Acetaminophen 650 mg 03/16/19 23:23 Tylenol PO Q4H PRN Pain MILD(1-3)/Fever >100.5/MCDONALD Albuterol/Ipratropium 1 ampul 03/17/19 02:00 03/18/19 07:41 Duoneb *Not For Prn Use* IH 1 ampul Q6HRT MAU Administration Aspirin 81 mg 03/17/19 10:00 03/18/19 11:13 Baby Aspirin PO 81 mg QDAY MAU Administration Dextrose 0 ml 03/16/19 23:23 D50w (25gm) Syringe IV Q30MIN PRN Hypoglycemia Enoxaparin Sodium 40 mg 03/17/19 10:00 03/18/19 11:13 Enoxaparin SUB-Q 40 mg QDAY MAU Administration Furosemide 40 mg 03/19/19 10:00 Lasix IV QDAY MAU Hydralazine HCl 10 mg 03/18/19 13:34 Apresoline IV Q4HR PRN Blood Pressure Insulin Human Lispro 0 unit 03/17/19 07:30 03/17/19 21:58 Humalog SUB-Q Not Given [facility] Protocol Lisinopril 2.5 mg 03/17/19 10:00 03/18/19 11:12 Zestril PO 2.5 mg QDAY MAU Administration Methylprednisolone Sodium Succinate 60 mg 03/17/19 15:00 03/18/19 05:07 Solu-Medrol IV 60 mg Q6HR MAU Administration Metoprolol Tartrate 25 mg 03/17/19 14:00 03/18/19 11:13 Metoprolol PO 25 mg BID MAU Administration Ondansetron HCl 4 mg 03/16/19 23:23 Zofran IV Q8H PRN Nausea And Vomiting Sodium Chloride 10 ml 03/17/19 10:00 03/18/19 11:13 Sodium Chloride Flush Syringe 10 Ml IV 10 ml BID MAU Administration Sodium Chloride 10 ml 03/16/19 23:23 Sodium Chloride Flush Syringe 10 Ml IV PRN PRN LINE FLUSH
[2019-03-18] MEDS: INSULIN LISPRO 100 UNIT/ML SUB-Q SCH ×3 (16:06→21:51)
[2019-03-18] MEDS ORDERED: hydrALAZINE 20 MG/1 ML INJ IV ONE (18:01)
[2019-03-19] MEDS: methylPREDNISolone Sod Succinate 125 MG/2 ML INJ IV SCH ×3 (00:26→12:43)
[2019-03-19] MEDS: IPRATROPIUM/ALBUTEROL SULFATE 3 ML AMPUL.NEB IH SCH ×3 (01:44→14:24)
--- NOTE | 2019-03-19 07:16 | Progress Note ---
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 * CTA chest IMPRESSION: 1. Negative for PTE. 2. Mild interstitial edema with no significant effusion. * TTE Conclusions: mild concentric LVH, estimated EF 55-60%, left atrium dilated, grade 2 LV diastolic dysfunction, RVSF is normal, mild TR, RVSP is calculated at 63 mmHg Acute on chronic hypoxic respiratory failure on bipap 40%: consult Pulmonology ( followed by [facility]), try to wean bipap, continue O2 supplementation. Need ABGs Acute diastolic heart failure: treat with iv lasix, consult Cardiology ILD/Antisynthase exacerbation: treat with o2 supplementation, iv steroids and consult Pulm Pulmonary hypertension: consulted Pulmonology Morbid Obesity, BMI 48.4: Lifestyle modification stressed, weight watchers advised Type 2 DM: ssi, accucheck, ada Hypertension: continue antihypertensive med, low salt diet DVT ppx on lovenox 03/17/19 15:28: I spoke with Dr. Beauchamp, it appears patient was traveling thru this area to go to [facility] for IV infusion treatment that is not done Here. She lives 2 [place] away and stopped here because closest hospital. I called [facility] transfer [phone] and spoke with Selene Diallo. Addendum entered and electronically signed by JYOTHI RICO MD 03/17/19 16:16: Hospitalist Dr. Lopez [facility] called me back, unable to accept this patient because she is on bipap, so she will need ICU doctor to accept but [facility] is on ICU diversion. 03/18/19: BIPAP weaned off yesterday, now on 4L O2, so I called [facility] transfer center back at [phone] and spoke with Kaye, she will call me back. 03/18/19 16:11: [facility] Hospitalist, Dr. Lopez called me back but did not accept for transfer to [facility] but would like Rheumatology opinion if Rituxamab will be given (this is an [facility]'s patient and they have all clinical info, never knew patient was on Rituxamab until they told me). If patient needs Rituxamab (we don't do that here) then he will accept. 03/18/19 17:02: [facility] transfer line repKaye called me back and said they would accept because Rheumatology wants to do the treatment but bp too high 211/107. I asked the RN to repeat and document. [facility] notified of up to date vitals, bp 172/109. 03/19/19 at 0710: I called [facility] transfer line and spoke with Mattie, patient has been accepted to [facility] by Dr. Lopez but no beds available. History Interval history: Patient was seen and examined. Follow-up on current diagnosis of SOB. Overnight uneventful. Patient denies any chest pain, nausea/vomiting or severe headaches. Imaging, nursing note, chart, labs and old chart reviewed. Discussed with patient. Hospitalist Physical - Physical exam Narrative exam: GEN: WDWN, morbid obesity, 48.4, mild increase accessory muscle, on bipap, Awake, Alert, Orientated HEENT: NCAT, EOMI, PERRL, OP Clear NECK: supple, no adenopathy, no thyromegaly, no JVD CVS/HEART: RRR, normal S1S2, pulses present bilaterally CHEST/LUNGS: inspiratory crackles left > right, diminished bs bilateral, Symmetrical chest expansion, good air entry bilaterally GI/Abdomen: soft, NTND, good bowel sounds, no guarding or rebound /Bladder: no suprapubic tenderness, no CVA or paraspinal tenderness EXT/Skin: BLE pretibial edema, no obvious rash MSK: FROM x 4 Neuro: CN 2-12 grossly intact, no new focal deficits Psych: calm - Constitutional Vitals: Temp Pulse Resp BP Pulse Ox 97.3 F L 66 21 170/109 100 03/19/19 04:45 03/19/19 04:45 03/19/19 04:45 03/19/19 04:45 03/19/19 04:45 General appearance: Present: other (on BiPAP) Results - Labs CBC & Chem 7: 03/18/19 04:36 03/18/19 04:36 Labs: Laboratory Last Values WBC 20.0 K/mm3 (4.5-11.0) H 03/18/19 04:36 RBC 4.86 M/mm3 (3.65-5.03) 03/18/19 04:36 Hgb 13.5 gm/dl (10.1-14.3) 03/18/19 04:36 Hct 41.4 % (30.3-42.9) 03/18/19 04:36 MCV 85 fl (79-97) 03/18/19 04:36 MCH 28 pg (28-32) 03/18/19 04:36 MCHC 33 % (30-34) 03/18/19 04:36 RDW 14.8 % (13.2-15.2) 03/18/19 04:36 Plt Count 285 K/mm3 (140-440) 03/18/19 04:36 Add Manual Diff Complete 03/17/19 05:14 Total Counted 100 03/17/19 05:14 Seg Neutrophils % Ice Cream Server 03/17/19 05:14 Seg Neuts % (Manual) 97.0 % (40.0-70.0) H 03/17/19 05:14 Band Neutrophils % 0 % 03/17/19 05:14 Lymphocytes % (Manual) 2.0 % (13.4-35.0) L 03/17/19 05:14 Reactive Lymphs % (Man) 0 % 03/17/19 05:14 Monocytes % (Manual) 1.0 % (0.0-7.3) 03/17/19 05:14 Eosinophils % (Manual) 0 % (0.0-4.3) 03/17/19 05:14 Basophils % (Manual) 0 % (0.0-1.8) 03/17/19 05:14 Metamyelocytes % 0 % 03/17/19 05:14 Myelocytes % 0 % 03/17/19 05:14 Promyelocytes % 0 % 03/17/19 05:14 Blast Cells % 0 % 03/17/19 05:14 Nucleated RBC % Not Reportable 03/17/19 05:14 Seg Neutrophils # Man 14.6 K/mm3 (1.8-7.7) H 03/17/19 05:14 Band Neutrophils # 0.0 K/mm3 03/17/19 05:14 Lymphocytes # (Manual) 0.3 K/mm3 (1.2-5.4) L 03/17/19 05:14 Abs React Lymphs (Man) 0.0 K/mm3 03/17/19 05:14 Monocytes # (Manual) 0.2 K/mm3 (0.0-0.8) 03/17/19 05:14 Eosinophils # (Manual) 0.0 K/mm3 (0.0-0.4) 03/17/19 05:14 Basophils # (Manual) 0.0 K/mm3 (0.0-0.1) 03/17/19 05:14 Metamyelocytes # 0.0 K/mm3 03/17/19 05:14 Myelocytes # 0.0 K/mm3 03/17/19 05:14 Promyelocytes # 0.0 K/mm3 03/17/19 05:14 Blast Cells # 0.0 K/mm3 03/17/19 05:14 WBC Morphology Not Reportable 03/17/19 05:14 Hypersegmented Neuts Not Reportable 03/17/19 05:14 Hyposegmented Neuts Not Reportable 03/17/19 05:14 Hypogranular Neuts Not Reportable 03/17/19 05:14 Smudge Cells Not Reportable 03/17/19 05:14 Toxic Granulation Not Reportable 03/17/19 05:14 Toxic Vacuolation Not Reportable 03/17/19 05:14 Dohle Bodies Not Reportable 03/17/19 05:14 Pelger-Huet Anomaly Not Reportable 03/17/19 05:14 Jr Rods Not Reportable 03/17/19 05:14 Platelet Estimate Consistent w auto 03/17/19 05:14 Clumped Platelets Not Reportable 03/17/19 05:14 Plt Clumps, EDTA Not Reportable 03/17/19 05:14 Large Platelets Not Reportable 03/17/19 05:14 Giant Platelets Not Reportable 03/17/19 05:14 Platelet Satelliting Not Reportable 03/17/19 05:14 Plt Morphology Comment Not Reportable 03/17/19 05:14 RBC Morphology Normal 03/17/19 05:14 Dimorphic RBCs Not Reportable 03/17/19 05:14 Polychromasia Not Reportable 03/17/19 05:14 Hypochromasia Not Reportable 03/17/19 05:14 Poikilocytosis Not Reportable 03/17/19 05:14 Anisocytosis Not Reportable 03/17/19 05:14 Microcytosis Not Reportable 03/17/19 05:14 Macrocytosis Not Reportable 03/17/19 05:14 Spherocytes Not Reportable 03/17/19 05:14 Pappenheimer Bodies Not Reportable 03/17/19 05:14 Sickle Cells Not Reportable 03/17/19 05:14 Target Cells Not Reportable 03/17/19 05:14 Tear Drop Cells Not Reportable 03/17/19 05:14 Ovalocytes Not Reportable 03/17/19 05:14 Helmet Cells Not Reportable 03/17/19 05:14 [place] Bodies Not Reportable 03/17/19 05:14 [place] Rings Not Reportable 03/17/19 05:14 Rick Cells Not Reportable 03/17/19 05:14 Bite Cells Not Reportable 03/17/19 05:14 Crenated Cell Not Reportable 03/17/19 05:14 Elliptocytes Not Reportable 03/17/19 05:14 Acanthocytes (Spur) Not Reportable 03/17/19 05:14 Rouleaux Not Reportable 03/17/19 05:14 Hemoglobin C Crystals Not Reportable 03/17/19 05:14 Schistocytes Not Reportable 03/17/19 05:14 Malaria parasites Not Reportable 03/17/19 05:14 Ramez Bodies Not Reportable 03/17/19 05:14 Hem Pathologist Commnt No 03/17/19 05:14 ABG pH 7.448 pH Units (7.350-7.450) 03/18/19 Unknown ABG pCO2 40.5 mm Hg 03/18/19 Unknown ABG pO2 69.0 mm Hg (80.0-90.0) L 03/18/19 Unknown ABG HCO3 27.4 mmol/L (20.0-26.0) H 03/18/19 Unknown ABG O2 Saturation 94.7 % (95.0-99.0) L 03/18/19 Unknown ABG O2 Content 18.8 (0.0-44) 03/18/19 Unknown ABG Base Excess 3.2 mmol/L (-2.0-3.0) H 03/18/19 Unknown ABG Hemoglobin 14.4 gm/dl (12.0-16.0) 03/18/19 Unknown ABG Carboxyhemoglobin 1.4 % (0.0-5.0) 03/18/19 Unknown ABG Methemoglobin 0.6 % (0.0-1.5) 03/18/19 Unknown Oxyhemoglobin 92.8 % (95.0-99.0) L 03/18/19 Unknown FiO2 32 % 03/18/19 Unknown Sodium 143 mmol/L (137-145) 03/18/19 04:36 Potassium 4.7 mmol/L (3.6-5.0) 03/18/19 04:36 Chloride 101.6 mmol/L (98-107) 03/18/19 04:36 Carbon Dioxide 26 mmol/L (22-30) 03/18/19 04:36 Anion Gap 20 mmol/L 03/18/19 04:36 BUN 16 mg/dL (7-17) 03/18/19 04:36 Creatinine 0.9 mg/dL (0.7-1.2) 03/18/19 04:36 Estimated GFR > 60 ml/min 03/18/19 04:36 BUN/Creatinine Ratio 18 % 03/18/19 04:36 Glucose 165 mg/dL (65-100) H 03/18/19 04:36 POC Glucose 172 (70-105) H 03/18/19 21:46 Lactic Acid 1.20 mmol/L (0.7-2.0) 03/16/19 19:58 Calcium 9.5 mg/dL (8.4-10.2) 03/18/19 04:36 Total Bilirubin 0.60 mg/dL (0.1-1.2) 03/16/19 19:58 AST 19 units/L (5-40) 03/16/19 19:58 ALT 13 units/L (7-56) 03/16/19 19:58 Alkaline Phosphatase 40 units/L (35-129) 03/16/19 19:58 Total Creatine Kinase 254 units/L (30-135) H 03/16/19 19:58 CK-MB (CK-2) 3.3 ng/mL (0.0-4.0) 03/16/19 19:58 CK-MB (CK-2) Rel Index 1.2 (0-4) 03/16/19 19:58 Troponin T 0.023 ng/mL (0.00-0.029) 03/16/19 19:58 NT-Pro-B Natriuret Pep 1688 pg/mL (0-450) H 03/16/19 20:23 Total Protein 6.5 g/dL (6.3-8.2) 03/16/19 19:58 Albumin 3.8 g/dL (3.9-5) L 03/16/19 19:58 Albumin/Globulin Ratio 1.4 % 03/16/19 19:58 HCG, Qual Negative (Negative) 03/16/19 19:58 Urine Color Straw (Yellow) 03/17/19 00:49 Urine Turbidity Clear (Clear) 03/17/19 00:49 Urine pH 6.0 (5.0-7.0) 03/17/19 00:49 Ur Specific [place] 1.014 (1.003-1.030) 03/17/19 00:49 Urine Protein <15 mg/dl mg/dL (Negative) 03/17/19 00:49 Urine Glucose (UA) Neg mg/dL (Negative) 03/17/19 00:49 Urine Ketones Neg mg/dL (Negative) 03/17/19 00:49 Urine Blood Neg (Negative) 03/17/19 00:49 Urine Nitrite Neg (Negative) 03/17/19 00:49 Urine Bilirubin Neg (Negative) 03/17/19 00:49 Urine Urobilinogen < 2.0 mg/dL (<2.0) 03/17/19 00:49 Ur Leukocyte Esterase Neg (Negative) 03/17/19 00:49 Urine WBC (Auto) < 1.0 /HPF (0.0-6.0) 03/17/19 00:49 Urine RBC (Auto) 1.0 /HPF (0.0-6.0) 03/17/19 00:49 U Epithel Cells (Auto) 1.0 /HPF (0-13.0) 03/17/19 00:49 Urine Bacteria (Auto) 1+ /HPF (Negative) 03/17/19 00:49 Active Medications - Current Medications Current Medications: Generic Name Dose Route Start Last Admin Trade Name Freq PRN Reason Stop Dose Admin Acetaminophen 650 mg 03/16/19 23:23 Tylenol PO Q4H PRN Pain MILD(1-3)/Fever >100.5/MCDONALD Albuterol/Ipratropium 1 ampul 03/17/19 02:00 03/19/19 01:44 Duoneb *Not For Prn Use* IH Not Given Q6HRT MAU Aspirin 81 mg 03/17/19 10:00 03/18/19 11:13 Baby Aspirin PO 81 mg QDAY MAU Administration Dextrose 0 ml 03/16/19 23:23 D50w (25gm) Syringe IV Q30MIN PRN Hypoglycemia Enoxaparin Sodium 40 mg 03/17/19 10:00 03/18/19 11:13 Enoxaparin SUB-Q 40 mg QDAY MAU Administration Furosemide 40 mg 03/19/19 10:00 Lasix IV QDAY MAU Hydralazine HCl 10 mg 03/18/19 13:34 Apresoline IV Q4HR PRN Blood Pressure Insulin Human Lispro 0 unit 03/17/19 07:30 03/18/19 21:51 Humalog SUB-Q 3 unit ACHS MAU Administration Protocol Lisinopril 2.5 mg 03/17/19 10:00 03/18/19 11:12 Zestril PO 2.5 mg QDAY MAU Administration Methylprednisolone Sodium Succinate 60 mg 03/17/19 15:00 03/19/19 05:37 Solu-Medrol IV 60 mg Q6HR MAU Administration Metoprolol Tartrate 25 mg 03/17/19 14:00 03/18/19 21:50 Metoprolol PO 25 mg BID MAU Administration Ondansetron HCl 4 mg 03/16/19 23:23 Zofran IV Q8H PRN Nausea And Vomiting Sodium Chloride 10 ml 03/17/19 10:00 03/18/19 21:52 Sodium Chloride Flush Syringe 10 Ml IV 10 ml BID MAU Administration Sodium Chloride 10 ml 03/16/19 23:23 Sodium Chloride Flush Syringe 10 Ml IV PRN PRN LINE FLUSH
[2019-03-19] MEDS: INSULIN LISPRO 100 UNIT/ML SUB-Q SCH ×2 (08:00→12:00)
[2019-03-19] MEDS: LISINOPRIL 5 MG TAB PO SCH ×2 (08:30→09:39)
[2019-03-19] MEDS: METOPROLOL TARTRATE 25 MG TAB PO SCH (09:35)
[2019-03-19] MEDS: ASPIRIN 81 MG TAB CHEW PO SCH (09:35)
[2019-03-19] MEDS: ENOXAPARIN 40 MG/0.4 ML INJ SUB-Q SCH (09:35)
[2019-03-19] MEDS ORDERED: FUROSEMIDE 40 MG/4 ML INJ IV SCH (10:00)
[2019-03-19 13:02] VITALS: BP 183/113
--- NOTE | 2019-03-19 14:24 | Discharge Summary ---
Providers - Providers Date of Admission: 03/16/19 23:16 Date of discharge: 03/19/19 Attending physician: JYOTHI RICO 03/16/19 23:23 Consult to Physician [CONS] Routine Comment: Consulting Provider: SONG SWEET Physician Instructions: Reason For Exam: chf 03/17/19 10:59 Consult to Physician [CONS] Routine Comment: Consulting Provider: POLY BEAUCHAMP Physician Instructions: Reason For Exam: Respiratory failure on BIPAP 03/17/19 11:16 Consult to Physician [CONS] Routine Comment: Consulting Provider: REYES WILLIAM Physician Instructions: Reason For Exam: acute diastolic heart failure Primary care physician: [employer]PA[employer] Hospitalization Condition: Fair Hospital course: Patient is a 43 yo woman with history of AntiSynthase syndrome with chronic hypoxic respiratory failure due to ILD on 2 liters of home O2, DM type 2 and hypertension who presents with SOB and cough. * CTA chest IMPRESSION: 1. Negative for PTE. 2. Mild interstitial edema with no significant effusion. * TTE Conclusions: mild concentric LVH, estimated EF 55-60%, left atrium dilated, grade 2 LV diastolic dysfunction, RVSF is normal, mild TR, RVSP is calculated at 63 mmHg Acute on chronic hypoxic respiratory failure on bipap 40%: consult Pulmonology ( followed by [facility] lung doctors), try to wean bipap, continue O2 supplementation. Need ABGs Acute diastolic heart failure: treat with iv lasix, consult Cardiology ILD/Antisynthase exacerbation: treat with o2 supplementation, iv steroids and consult Pulm Pulmonary hypertension: consulted Pulmonology Morbid Obesity, BMI 48.4: Lifestyle modification stressed, weight watchers advised Type 2 DM: ssi, accucheck, ada Hypertension: continue antihypertensive med, low salt diet DVT ppx on lovenox 03/17/19 15:28: I spoke with Dr. Beauchamp, it appears patient was traveling thru this area to go to [facility] of [facility] for IV infusion treatment that is not done Here. She lives 2 [place] away and stopped here because closest hospital. I called [facility] transfer [phone] and spoke with Selene Diallo. Addendum entered and electronically signed by JYOTHI RICO MD 03/17/19 16:16: Hospitalist Dr. Lopez [facility] called me back, unable to accept this patient because she is on bipap, so she will need ICU doctor to accept but [facility] is on ICU diversion. 03/18/19: BIPAP weaned off yesterday, now on 4L O2, so I called [facility] transfer center back at [phone] and spoke with Kaye, she will call me back. 03/18/19 16:11: [facility] Hospitalist, Dr. Lopez called me back but did not accept for transfer to [facility] but would like Rheumatology opinion if Rituxamab will be given (this is an [facility]'s patient and they have all clinical info, never knew patient was on Rituxamab until they told me). If patient needs Rituxamab (we don't do that here) then he will accept. 03/18/19 17:02: [facility] transfer line rep, Kaye called me back and said they would accept because Rheumatology wants to do the treatment but bp too high 211/107. I asked the RN to repeat and document. [facility] notified of up to date vitals, bp 172/109. 03/19/19 at 0710: I called [facility] transfer line and spoke with Mattie, patient has been accepted to [facility] by Dr. Lopez but no beds available. I was told bed is available she will be going today. Disposition: [id number]/TX-[id number] ANOTHER TYPE HLTHCARE Time spent for discharge: 35 minutes Core Measure Documentation - Palliative Care Palliative Care/ Comfort Measures: Not Applicable - Core Measures Any of the following diagnoses?: none - VTE Discharge Requirements Deep Vein Thrombosis/Pulmonary Embolism Present on Admission: No Has pt received <5 days of overlap therapy or INR<2.0: No Anticoagulant overlap therapy prescribed at discharge: No Contraindication No Overlap Therapy order at DC: Not Indicated Exam - Physical Exam Narrative exam: GEN: WDWN, morbid obesity, 48.4, mild increase accessory muscle, on bipap, Awake, Alert, Orientated HEENT: NCAT, EOMI, PERRL, OP Clear NECK: supple, no adenopathy, no thyromegaly, no JVD CVS/HEART: RRR, normal S1S2, pulses present bilaterally CHEST/LUNGS: inspiratory crackles left > right, diminished bs bilateral, Symmetrical chest expansion, good air entry bilaterally GI/Abdomen: soft, NTND, good bowel sounds, no guarding or rebound /Bladder: no suprapubic tenderness, no CVA or paraspinal tenderness EXT/Skin: BLE pretibial edema, no obvious rash MSK: FROM x 4 Neuro: CN 2-12 grossly intact, no new focal deficits Psych: calm - Constitutional Vitals: Temp Pulse Resp BP Pulse Ox 98.4 F 73 16 183/113 95 03/19/19 08:44 03/19/19 13:03 03/19/19 10:00 03/19/19 13:03 03/19/19 12:45 Plan Activity: other (no strenous activity) Diet: low salt, diabetic Special Instructions: record daily BP diary, record blood sugar diary Follow up with: PRIMARY CARE, [Primary Care Provider] - 3-5 Days REYES WILLIAM MD [Staff Physician] - 7 Days Prescriptions: Furosemide [Lasix TAB] 40 mg PO QDAY #30 tablet
== END 2019-03-19 16:50 | disposition short-term general hospital (02) | DRG 291 ==
LOC: ED 19:07 → 4A 23:16
PROVIDERS: ADMIT Internal Medicine; ATTEND Internal Medicine
PROC: 5A09357 Assistance with Respiratory Ventilation, Less than 24 Consecutive Hours, Continuous Positive Airway Pressure (ICD-10-PCS; 2019-03-16)
PROC: 5A09357 Assistance with Respiratory Ventilation, Less than 24 Consecutive Hours, Continuous Positive Airway Pressure (ICD-10-PCS; 2019-03-17)
PROC: 4A033R1 Measurement of Arterial Saturation, Peripheral, Percutaneous Approach (ICD-10-PCS; principal; 2019-03-18)
PROC: 5A09357 Assistance with Respiratory Ventilation, Less than 24 Consecutive Hours, Continuous Positive Airway Pressure (ICD-10-PCS; 2019-03-18)
DX: I11.0 Hypertensive heart disease with heart failure (principal); I50.31 Acute diastolic (congestive) heart failure; J96.21 Acute and chronic respiratory failure with hypoxia; Z68.42 Body mass index [BMI] 45.0-49.9, adult; J84.9 Interstitial pulmonary disease, unspecified; E11.8 Type 2 diabetes mellitus with unspecified complications; I27.20 Pulmonary hypertension, unspecified; E66.01 Morbid (severe) obesity due to excess calories; D89.89 Other specified disorders involving the immune mechanism, not elsewhere classified; Z79.899 Other long term (current) drug therapy; Z98.51 Tubal ligation status; Z82.49 Family history of ischemic heart disease and other diseases of the circulatory system; Z83.3 Family history of diabetes mellitus
CPT/HCPCS: 36415; 36600; 71045; 71275; 80048; 80053; 81001; 82140; 82550; 82553; 82803; 82962; 83880; 84484; 84703; 85007; 85025; 85027; 87116; 93005; 93010; 93306; 94640; 94660; 94760; 96374; G0378; J0360; J0692; J1650; J1815; J1940; J2930; J7030; Q9967